=== PATIENT | male | born 1960 | race Caucasian/White ===

== ENCOUNTER 2016-11-13 18:46 | Inpatient (IN) | payer MEDICARE ==
[~2016-11-13] VITALS: Ht 182.9 cm; Wt 184.2 kg
[~2016-11-13 18:46] MED LIST: ASPIRIN325 MG PO; CHANTIX0.5 MG PO; CLINDAMYCIN HC300 MG PO; FEOSOL325 MG PO; FERROUS GLUCON325 MG PO; IMDUR ER TAB 3030 MG PO; IMDUR ER TAB 6060 MG PO; K-TAB ER20 MEQ PO; LASIX40 MG PO; LIPITOR20 MG PO; LISINOPRIL20 MG PO; LISINOPRIL40 MG PO; LOPRESSOR 50 MG50 MG PO; NIACIN PO; NITROSTAT 0.40.4 MG SL; NORVASC 5 MG TAB5 MG PO; TOPROL XL 50 MG50 MG PO; ZOCOR20 MG PO
[2016-11-13 20:21] LABS: RED BLOOD COUNT 5.7 M/UL (4.20-5.50); WHITE BLOOD COUNT 9.9 K/UL (4.5-11.0)
[2016-11-13 20:48] LABS: BUN/CREATININE RATIO 18 (0-10)
[2016-11-14] MEDS ORDERED: LOPRESSOR 25 MG25 MG PO (01:05)
[2016-11-14] MEDS ORDERED: LASIX40 MG PO (01:05)
[2016-11-14] MEDS ORDERED: K-DUR TAB 10 M10 MEQ PO (01:06)
[2016-11-14] MEDS ORDERED: IMDUR ER TAB 6060 MG PO (01:06)
[2016-11-14] MEDS ORDERED: FEOSOL325 MG PO (01:07)
[2016-11-14 10:39] LABS: HEMOGLOBIN 13.6 gm/dl (14.0-17.5); RED BLOOD COUNT 5.16 M/UL (4.20-5.50); WHITE BLOOD COUNT 7.5 K/UL (4.5-11.0)
[2016-11-15 15:21] LABS: BUN/CREATININE RATIO 22 (0-10)
[2016-11-16 04:31] LABS: BUN/CREATININE RATIO 20 (0-10)
[2016-11-17 03:55] LABS: HEMOGLOBIN 12.9 gm/dl (14.0-17.5); RED BLOOD COUNT 4.94 M/UL (4.20-5.50); WHITE BLOOD COUNT 7.6 K/UL (4.5-11.0)
[2016-11-17 04:13] LABS: BUN/CREATININE RATIO 19 (0-10)
[2016-11-17 11:55] LABS: HEMOGLOBIN 12.8 gm/dl (14.0-17.5); RED BLOOD COUNT 4.82 M/UL (4.20-5.50); WHITE BLOOD COUNT 7.3 K/UL (4.5-11.0)
[2016-11-17 12:10] LABS: BUN/CREATININE RATIO 18 (0-10)
[2016-11-18 03:32] LABS: HEMOGLOBIN 12.5 gm/dl (14.0-17.5); RED BLOOD COUNT 4.7 M/UL (4.20-5.50)
[2016-11-18 03:34] LABS: WHITE BLOOD COUNT 9.7 K/UL (4.5-11.0)
[2016-11-18 04:02] LABS: BUN/CREATININE RATIO 15 (0-10)
[2016-11-18] MEDS ORDERED: ADULT LOW DOSE81 MG PO (11:45)
[2016-11-18] MEDS ORDERED: PLAVIX 75 MG TA75 MG PO (11:46)
[2016-11-18] MEDS ORDERED: LIPITOR TAB 2020 MG PO (11:46)
[2016-11-18] MEDS ORDERED: TRANDATE 300 M300 MG PO (11:50)
[2016-12-15] MEDS ORDERED: RANEXA500 MG PO (12:06)
[2017-02-08] MEDS ORDERED: IMDUR ER TAB 3030 MG PO (22:57)
[2017-02-13] MEDS ORDERED: BUMEX 1MG TABLET1 MG PO ×2 (15:31→15:41)
[2017-02-13] MEDS ORDERED: IPRAT-ALBUT 0.5-3 ML INH (15:34)
[2017-02-13] MEDS ORDERED: LISINOPRIL40 MG PO (15:36)
[2017-02-13] MEDS ORDERED: PROCARDIA XL 6060 MG PO (15:37)
[2017-02-13] MEDS ORDERED: PREDNISONE 10 M10 MG PO (15:40)
== END 2016-11-18 11:00 | disposition home or self-care (01) | DRG 246 ==
LOC: ER1 18:46 → ZEROF 23:33 → MED SURG 4 23:33 → PROG CARE 11-14 19:04
PROVIDERS: Family Medicine; Internal Medicine; Internal Medicine Cardiovascular Disease; Internal Medicine Infectious Disease; Nurse Practitioner; ADMIT Internal Medicine
PROC: 037B3ZZ Dilation of Right Radial Artery, Percutaneous Approach (ICD-10-PCS; 2016-11-14)
PROC: 4A023N7 Measurement of Cardiac Sampling and Pressure, Left Heart, Percutaneous Approach (ICD-10-PCS; 2016-11-14)
PROC: B2111ZZ Fluoroscopy of Multiple Coronary Arteries using Low Osmolar Contrast (ICD-10-PCS; 2016-11-14)
PROC: B31H1ZZ Fluoroscopy of Right Upper Extremity Arteries using Low Osmolar Contrast (ICD-10-PCS; 2016-11-14)
PROC: B2151ZZ Fluoroscopy of Left Heart using Low Osmolar Contrast (ICD-10-PCS; 2016-11-14)
PROC: 027037Z Dilation of Coronary Artery, One Artery with Four or More Drug-eluting Intraluminal Devices, Percutaneous Approach (ICD-10-PCS; principal; 2016-11-17)
PROC: 4A023N7 Measurement of Cardiac Sampling and Pressure, Left Heart, Percutaneous Approach (ICD-10-PCS; 2016-11-17)
PROC: B2101ZZ Fluoroscopy of Single Coronary Artery using Low Osmolar Contrast (ICD-10-PCS; 2016-11-17)
DX: I25.110 Atherosclerotic heart disease of native coronary artery with unstable angina pectoris (principal); I50.43 Acute on chronic combined systolic (congestive) and diastolic (congestive) heart failure; I77.76 Dissection of artery of upper extremity; E66.2 Morbid (severe) obesity with alveolar hypoventilation; Z68.43 Body mass index [BMI] 50.0-59.9, adult; N17.9 Acute kidney failure, unspecified; Z95.5 Presence of coronary angioplasty implant and graft; Y84.0 Cardiac catheterization as the cause of abnormal reaction of the patient, or of later complication, without mention of misadventure at the time of the procedure; Y71.0 Diagnostic and monitoring cardiovascular devices associated with adverse incidents; Y92.238 Other place in hospital as the place of occurrence of the external cause; I11.0 Hypertensive heart disease with heart failure; I48.0 Paroxysmal atrial fibrillation; E87.6 Hypokalemia; E11.9 Type 2 diabetes mellitus without complications; J44.9 Chronic obstructive pulmonary disease, unspecified; E78.5 Hyperlipidemia, unspecified; F17.210 Nicotine dependence, cigarettes, uncomplicated; Z91.19 Patient's noncompliance with other medical treatment and regimen; Z72.3 Lack of physical exercise; Z82.49 Family history of ischemic heart disease and other diseases of the circulatory system; Z82.3 Family history of stroke; Z79.899 Other long term (current) drug therapy; Z98.890 Other specified postprocedural states
CPT/HCPCS: 36415; 37246; 71010; 75710; 80048; 80053; 80061; 82550; 82553; 83690; 83735; 83874; 83880; 84443; 84484; 85025; 85027; 85347; 93005; 96374; 96375; 99152; 99153; 99285; C1725; C1769; C1874; C1887; C1894; C9600; G0378; J0360; J0461; J0583; J1644; J1650; J1940; J2250; J2270; J2405; J3010; J7030; Q9963